=== PATIENT | male | born 2000 | race Hispanic/Latino ===

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

== ENCOUNTER 2019-02-12 01:58 | Emergency (ER) | payer OTHER, SELFPAY ==
[2019-02-12] MEDS ORDERED: levETIRAcetam 500 MG TAB PO SCH (03:00)
[2019-02-12 03:53] LABS: #Eosinphils 0.2 thou/uL (0.0-0.7); #Lymphocytes 2.3 thou/uL (1.20-3.40); #Monocytes 0.8 thou/uL (0.11-0.59); %Basophils 0.3 % (0.0-1.0); %Eosinophils 1.5 % (0.0-10.0); %Lymphocytes 20.6 % (28.0-48.0); %Monocytes 7.4 % (0.0-4.0); %Neutrophils 70.3 % (31.0-61.0); Hemoglobin 15.1 g/dL (14.0-18.0); Mean Corpuscular HGB CONC 36.2 g/dL (32.0-36.0); Mean Corpuscular Hemoglobin 32.1 pg (25.0-35.0); Mean Corpuscular Volume 88.8 fL (78.0-98.0); Mean Platelet Volume 7.2 fL (7.4-10.4); Platelet Count 308 thou/uL (130-400); RBC Distribution Width 11.6 % (11.5-14.5); White Blood Cell (WBC) Count 11.4 thou/uL (4.8-10.8)
[2019-02-12 04:13] LABS: ALT (SGPT) 46 U/L (8-55); AST (SGOT) 33 U/L (5-34); Albumin 4.2 g/dL (3.5-5.0); Alkaline Phosphatase 76 U/L (Less than 750); Anion Gap 12 mmol/L (10-20); BUN (Urea Nitrogen) 14 mg/dL (8.9-20.6); Bilirubin, Total 0.3 mg/dL (0.2-1.2); Calc. Creatinine Clearance 0 mL/min (70-130); Calcium 9.3 mg/dL (7.8-10.44); Carbon Dioxide 22 mmol/L (22-29); Chloride 108 mmol/L (98-107); Estimated GFR-MDRD Greater than 90; Globulin 2.8 g/dL (2.4-3.5); Glucose 101 mg/dL (70-105); Potassium 3.7 mmol/L (3.5-5.1); Sodium 138 mmol/L (136-145)
--- NOTE | 2019-02-12 08:46 | CT ---
PRELIMINARY REPORT/[facility]/EMERGENCY AFTER HOURS PROCEDURE: EXAM: CT Head Without Contrast EXAM DATE/TIME: 02/12/2019 2:39 AM CLINICAL HISTORY: 19 years old, male; Condition or disease; Convulsions or seizures; Patient HX: 19yo m presenting afte r 2 seizures today. He states he has had seizures since age 1. He has been on keppra but that his ins urance recently stopped covering the medication. He has not been on medication for about 3 months. He states he has had several seizures since stopping the medication. He reports full body con vulsions, loss of bowel and tongue biting. He denies a post ictal period but can never remember the incident. He reports total loc for about 2-5 min. He states his mother witness a seizure today. H e did fall from standing but is unsure if he hit his head. TECHNIQUE: Imaging protocol: Computed tomography of the head without contrast. COMPARISON: No relevant prior studies available. FINDINGS: Brain: No acute intracranial hemorrhage or mass effect. No definite acute infarct by CT. MRI could be more sensitive/specific for detection, as clinically di rected. Ventricles: Ventricle size is normal for age. Bones/joints: No definite acute skull fracture. Sinuses: Included paranasal sinuses are essentially clear. Mastoid air cells: No significant acute finding. IMPRESSION: 1. No acute intracranial hemorrhage or mass effect. 2. No definite acute infarct by CT, see above. 3. Other findings discussed above. Thank you for allowing us to participate in the care of your patient. Dictated and Authenticated by: Jaciel Reveles MD 02/12/2019 3:43 AM Central Time ([place] & [place]) FINAL REPORT CT BRAIN WITHOUT CONTRAST: COMPARISON: 10/14/2018 FINDINGS/IMPRESSION: I agree with the findings and impression given in the preliminary report per [facility] physician. No evidence of acute intracranial abnormality. POS: [facility]
== END 2019-02-12 04:31 | disposition home or self-care (01) ==
LOC: ERS 01:58
DX: R56.9 Unspecified convulsions (principal); Z79.899 Other long term (current) drug therapy
CPT/HCPCS: 36415; 70450; 80053; 80177; 85025

== ENCOUNTER 2019-05-16 14:59 | Emergency (ER) | payer OTHER, SELFPAY ==
[2019-05-16] MEDS ORDERED: levETIRAcetam 500 MG TAB PO SCH (16:30)
== END 2019-05-16 17:03 | disposition home or self-care (01) ==
LOC: ERS 14:59
DX: G40.909 Epilepsy, unspecified, not intractable, without status epilepticus (principal); Z79.899 Other long term (current) drug therapy
CPT/HCPCS: 93005

== ENCOUNTER 2019-06-25 10:21 | Emergency (ER) | payer MEDICAID, OTHER ==
--- NOTE | 2019-06-25 10:43 | RAD ---
Exam:2 views left shoulder HISTORY: Pain. Fall. COMPARISON: None FINDINGS: Possible fracture along the bony glenoid. Better interrogation with CT is recommended. No e vidence of dislocation. IMPRESSION: Possible fracture along the bony glenoid. Better interrogation with CT is recommended.
[2019-06-25] MEDS ORDERED: Ketorolac Tromethamine 30 MG/ML VIAL ONE (11:36)
--- NOTE | 2019-06-25 12:07 | CT ---
LEFT SHOULDER WITHOUT CONTRAST: HISTORY: Fall. Trauma. Pain. FINDINGS: Visualized clavicle and acromion are intact. Visualized left ribs are intact. Lateral contour of the left humeral head is maintained. There does appear to be a mild irregularity i nvolving the medial femoral head which may represent a reverse Hill-Sachs deformity. There is irregularity involving the posterior scapula and bony glenoid. Findings appear to demonstrat e cortical areas of sclerosis with lucency. Subacute injury may be present. The humeral head appears to be perched with respect to the glenoid. T here is a component of impaction along the bony glenoid. IMPRESSION: Probable subacute injury involving the bony glenoid and posterior aspect of the scapula. There is a r everse Hill-Sachs deformity. The humeral head appears to be perched. Component of dislocation is suspected. Orthopedic consultation for reduction and further evaluation is recommended. Transcribed Date/Time: 06/25/2019 12:55 PM
[2019-06-25] MEDS ORDERED: Lidocaine 1% (PF) 30 ML VIAL ONE (13:18)
--- NOTE | 2019-06-25 13:58 | RAD ---
XR Shoulder Lt 2 View HISTORY: Fracture of the left glenoid scapula FINDINGS: The fracture of the glenoid noted on earlier exam of 11:33 AM is suboptimally seen on the current renaldo dy. No dislocation is seen.
== END 2019-06-25 14:30 | disposition home or self-care (01) ==
LOC: ERS 10:21
DX: S42.142A Displaced fracture of glenoid cavity of scapula, left shoulder, initial encounter for closed fracture (principal); S43.005A Unspecified dislocation of left shoulder joint, initial encounter; W06.XXXA Fall from bed, initial encounter
CPT/HCPCS: 23650; 36415; 80177; 96372; J1885; J2001

== ENCOUNTER 2023-11-15 12:40 | Emergency (ER) | payer OTHER, SELFPAY ==
[2023-11-15 12:56] LABS: #Basophils 0.04 10x3/uL (0.0-0.2); %Basophils 0.5 % (0.0-1.0); %Eosinophils 1.5 % (0.0-10.0); %Lymphocytes 24.5 % (21.0-51.0); %Monocytes 6.7 % (0.0-10.0); %Neutrophils 66.3 % (42.0-75.0); Hematocrit 44.5 % (42.0-52.0); Hemoglobin 16.2 g/dL (14.0-18.0); Mean Corpuscular HGB CONC 36.4 g/dL (32.0-36.0); Mean Corpuscular Hemoglobin 31.7 pg (27.0-31.0); Mean Corpuscular Volume 87.1 fL (78.0-98.0); Platelet Count 304 10x3/uL (130-400); RBC Distribution Width 11.9 % (11.5-14.5); Red Blood Cell (RBC) Count 5.11 mill/uL (4.70-6.10)
[2023-11-15] MEDS ORDERED: levETIRAcetam 500 MG (5 mL) VIAL ONE (13:10)
[2023-11-15 13:31] LABS: Acetaminophen Less than 10 mcg/mL (10.0-30.0); Alcohol Less than 10.0 mg/dL (Less than 10); Salicylate Less than 8.0 mg/dL (15.0-30.0)
[2023-11-15 13:32] LABS: ALT (SGPT) 61 U/L (8-55); AST (SGOT) 26 U/L (5-34); Alkaline Phosphatase 74 U/L (40-110); Anion Gap 18 mmol/L (10-20); BUN (Urea Nitrogen) 10 mg/dL (8.9-20.6); Bilirubin, Total 0.4 mg/dL (0.2-1.2); Calc. Creatinine Clearance 0 mL/min (70-130); Calcium 9.3 mg/dL (7.8-10.44); Carbon Dioxide 17 mmol/L (22-29); Chloride 108 mmol/L (98-107); Estimated GFR 109; Globulin 3.6 g/dL (2.4-3.5); Glucose 123 mg/dL (70-105); Potassium 4.3 mmol/L (3.5-5.1); Protein, Total 7.6 g/dL (6.0-8.3); Sodium 139 mmol/L (136-145)
== END 2023-11-15 14:00 | disposition home or self-care (01) ==
LOC: ERS 12:40
DX: G40.909 Epilepsy, unspecified, not intractable, without status epilepticus (principal); Z55.6 Problems related to health literacy; Z75.3 Unavailability and inaccessibility of health-care facilities; Z79.899 Other long term (current) drug therapy
CPT/HCPCS: 70450; 72125; 80053; 80307; 85025; 96374; J1953